=== PATIENT | male | born 1965 | race Caucasian/White ===

== ENCOUNTER 2016-06-30 05:17 | Day surgery (SDC) | payer OTHER ==
[2016-06-27 16:00] VITALS: BMI 27.7
[~2016-06-30] VITALS: Ht 180.3 cm; Wt 89.5 kg
[2016-06-30] VITALS (9 sets, daily range): BP systolic 105–133; BP diastolic 72–82; PULSE 44–64; RESP 18–20; Ht 180.3 cm; Wt 89.5 kg
[2016-06-30 06:43] LABS: ADD SCAN DIFF NO
[2016-06-30 06:47] LABS: BASOPHILS % 0.4 % (0.0-2.0); EOSINOPHILS # 0.1 10^3/ul (0.0-0.5); EOSINOPHILS % 1.2 % (0.0-7.0); HEMOGLOBIN 12.4 g/dl (14.0-18.0); LYMPHOCYTES # 2.2 10^3/ul (0.8-2.9); LYMPHOCYTES % 43.1 % (15.0-51.0); MEAN CORPUSCULAR HGB CONC 33.5 g/dl (32.0-37.0); MEAN CORPUSCULAR VOLUME 95.4 fl (82.0-101.0); MEAN PLATELET VOLUME 10.1 fl (7.4-10.4); MONOCYTE # 0.5 10^3/ul (0.3-0.9); MONOCYTES % 9.4 % (0.0-11.0); NEUTROPHIL # 2.4 10^3/ul (1.6-7.5); NEUTROPHILS % 45.7 % (39.0-77.0); PLATELET COUNT 226 10^3/UL (140-415); RED BLOOD COUNT 3.88 10^6/ul (4.70-6.10); RED CELL DISTRIBUTION WIDTH 14.8 % (11.5-14.5); WHITE BLOOD COUNT 5.2 10^3/ul (4.8-10.8)
[2016-06-30] MEDS ORDERED: BUPIVACAINE 0.25%/EPI (SDV) 30 ML INJ ONE (06:53)
[2016-06-30 07:02] LABS: INR 0.92; PROTIME 12.4 Sec (12.2-14.2)
[2016-06-30 07:03] LABS: PARTIAL THROMBOPLASTIN TIME 29.3 Sec (25.0-35.0)
[2016-06-30 07:13] LABS: CREATININE 0.86 mg/dl (0.61-1.24); POTASSIUM 3.9 mmol/L (3.5-5.1)
[2016-06-30 07:14] LABS: CALCIUM 8.5 mg/dl (8.4-10.2)
[2016-06-30] MEDS ORDERED: PROPOFOL 20 ML ONE (07:34)
[2016-06-30] MEDS ORDERED: LIDOCAINE 2% (SDV) 5 ML INJ ONE (07:34)
[2016-06-30] MEDS ORDERED: CEFAZOLIN 1 GM INJ ONE (07:39)
[2016-06-30] MEDS ORDERED: SOD CHLORIDE 0.9% 1,000 ML IV SCH (08:00)
[2016-06-30] MEDS ORDERED: CEFAZOLIN 2 GM/50 ML (PMX) 50 ML IVPB ONE (08:00)
[2016-06-30] MEDS ORDERED: ONDANSETRON 4 MG INJ IV PRN ×2 (08:30→09:00)
[2016-06-30] MEDS ORDERED: IBUPROFEN 600 MG TAB PO PRN (08:30)
[2016-06-30] MEDS ORDERED: KETOROLAC 30 MG INJ IV PRN (08:30)
--- NOTE | 2016-06-30 08:31 | OPR ---
Date/Time of Note Date/Time of Note DATE: 06/30/16 TIME: 08:25 Operative Report Procedure Date: Jun 30, 2016 Preoperative Diagnosis Soft tissue mass of the right neck Postoperative Diagnosis Soft tissue mass of the right neck Operation Performed Excision soft tissue mass right neck greater than 5 cm Surgeon: LAURA REDDY MD Anesthesia: general Anesthesiologist: RENAE العراقي Estimated Blood Loss: minimal Specimens Soft tissue mass of the neck Complications: None Pt Condition Post Procedure: stable Disposition: PACU Indications The patient is a 54-year-old -Chinese male who presented to the office complaining of a soft tissue mass on the right side of the neck. This had been present for over 16 years. It had recently been growing and causing increasing discomfort. He was scheduled for excision for symptom relief and definitive pathological diagnosis. All risks and benefits of the procedure including, but not limited to: Wound infection, excessive bleeding, postoperative seroma/ hematoma formation, injury to neurovascular structures, mass recurrence etc. were all explained to the patient in full detail. He fully understood and wished to proceed with the procedure. Informed consent was obtained. Operative Findings Soft tissue mass consistent with lipoma approximately 6 cm Procedure Description The patient was brought to the operating room and placed supine on the operating table. Bilateral sequential compression devices were placed on both lower extremities. A dose of broad-spectrum perioperative intravenous antibiotics was given. After the induction of smooth general LMA anesthesia the patient's head was turned to the left side and a neck roll was placed to provide extension. The right side of the neck was then prepped and draped in standard surgical fashion. The mass was preoperatively identified and marked and confirmed with the patient in the holding area. After performance of the surgical timeout 0.25% Marcaine with epinephrine was infiltrated over the area of the mass. An incision was then made using a 15 blade scalpel over the anterior border of the sternocleidomastoid muscle. Incision was carried down through the skin and dermal layer using sharp dissection. A lipomatous mass was identified in the subcutaneous tissues. It was dissected free of surrounding tissues using combination of Metzenbaum scissors and Bovie electrocautery. The mass was posteriorly adherent to the platysmal muscle. It was gently dissected off and transected at its base and passed off the field as specimen. The mass measured approximately 6 cm. Hemostasis was then inspected for and noted to be total. The wound cavity was then irrigated with normal saline and the irrigant returned clear. Further local anesthesia was then applied around the skin of the incision site. Incision was then closed in layers using interrupted 3-0 Vicryl sutures for the dermal layer. The skin was reapproximated using a 4-0 Monocryl suture in running subcuticular fashion. Incision was then cleaned and Dermabond was applied. The patient was awoken from anesthesia and transported to the recovery room in stable condition. All counts were correct at the end of the case 2 LAURA REDDY MD Jun 30, 2016 08:30
--- NOTE | 2016-06-30 08:47 | RADRPT ---
PROCEDURE: XR Chest. CLINICAL INDICATION: Preop. TECHNIQUE: Single frontal view of the chest was obtained. COMPARISON: None. FINDINGS: Cardiomediastinal silhouette appears normal Pulmonary vasculature appears normal. Lung rowley appear clear. Costophrenic angles are well defined. The osseous elements appear intact. IMPRESSION: 1. No evidence for active cardiopulmonary disease. RPTAT: [facility] Physician Rebecca Date Time Electronically viewed and signed by Rodrigo Eric Physician on 06/30/2016 08:47 /
[2016-06-30] MEDS ORDERED: MEPERIDINE 25 MG INJ IV PRN (09:00)
[2016-06-30] MEDS ORDERED: FENTAnyl 50 MCG/ML VIAL IV PRN ×3 (09:00)
[2016-06-30] MEDS ORDERED: OXYCODONE/ACETAMINOPHEN (5/325) TAB PO PRN ×2 (09:00)
[2016-06-30] MEDS ORDERED: LABETALOL HCL 20MG INJ IV PRN (09:00)
--- NOTE | 2016-07-02 19:04 | RADRPT ---
Vent Rate: 46 bpm RR Interval: 0 msec [place] Interval: 200 msec QRS Duration: 108 msec QT Interval: 458 msec QTC Interval: 400 msec P-R-T [place]: 48 - 14 - 30 degrees Marked sinus bradycardia Septal infarct , age undetermined Abnormal ECG Electronically Signed By: Angel Mccall [id number]
== END 2016-06-30 09:44 | disposition home or self-care (01) ==
LOC: SDS 05:17
PROVIDERS: ATTEND Surgery
DX: D17.0 Benign lipomatous neoplasm of skin and subcutaneous tissue of head, face and neck (principal)
CPT/HCPCS: 11426; 12041; 71010; 80048; 85025; 85610; 85730; 88307; 93005; J0690; J3010; Z7512; Z7610